=== PATIENT | female | born 1950 | race African-American/Black ===

== ENCOUNTER 2019-08-19 21:11 | Emergency (ER) | payer OTHER, MEDICAID ==
[~2019-08-19] VITALS: Ht 170.2 cm; Wt 139.2 kg
[2019-08-19 21:48] LABS: BASOPHILS % 0.7 % (0.0-2.0); EOSINOPHILS % 6.3 % (0.0-5.0); HEMATOCRIT. 34.4 % (36.0-48.0); LYMPHOCYTES % 30.8 % (20.0-50.0); MEAN CORPUSCULAR HEMOGLOBIN 27.5 pg (28.0-32.0); MEAN CORPUSCULAR VOLUME 86.2 fL (81.0-99.0); MEAN PLATELET VOLUME 11.7 fl (7.4-10.4); MONOCYTES % 10.7 % (2.0-8.0); NEUTROPHILS % 51.5 % (40.0-76.0); PLATELET 129 x1000/uL (130-400); RED BLOOD CELL COUNT 3.99 mill/uL (4.2-5.4); RED CELL DISTRIBUTION WIDTH 15.2 % (11.6-14.6)
[2019-08-19 21:53] LABS: CHLORIDE 117 mEq/L (98-107)
[2019-08-19 21:58] LABS: ETHANOL BLOOD < 10 mg/dL
[2019-08-19 22:00] LABS: LDL CHOLESTEROL 44 mg/dL (5-100)
[2019-08-19 22:02] LABS: CREATINE KINASE 253 IU/L (26-192)
[2019-08-19] MEDS ORDERED: HYDRALAZINE 20MG/ML VIAL IV ONE (22:15)
[2019-08-19] MEDS ORDERED: ASPIRIN 81MG TABLET PO ONE (22:15)
[2019-08-20 01:10] VITALS: BP 143/69
== END 2019-08-20 01:38 | disposition short-term general hospital (02) ==
LOC: ER 21:11 → CANBEDREQ 08-20 03:25
DX: G45.9 Transient cerebral ischemic attack, unspecified (principal); R51 Headache; I10 Essential (primary) hypertension; Z88.1 Allergy status to other antibiotic agents
CPT/HCPCS: 36415; 70450; 71045; 80053; 80320; 82550; 82962; 83721; 83880; 84484; 85025; 85610; 93005; 96374; 99291; J0360; G0480